=== PATIENT | female | born 1995 | race Caucasian/White ===

== ENCOUNTER 2016-07-24 13:59 | Emergency (ER) | payer OTHER ==
[2016-07-24 15:29] LABS: MEAN CORPUSCULAR HGB CONC 34.4 g/dl (32.0-36.5); MEAN CORPUSCULAR VOLUME 87.3 fl (80.0-96.0); RED CELL DISTRIBUTION WIDTH 13.9 % (11.5-14.5); WHITE BLOOD COUNT 9.2 K/mm3 (4.0-10.0)
[2016-07-24 15:37] LABS: ANION GAP 8 MEQ/L (8-16); BLOOD UREA NITROGEN 6 MG/DL (7-18); CALCIUM LEVEL 9.3 MG/DL (8.5-10.1); CARBON DIOXIDE LEVEL 27 MEQ/L (21-32); CHLORIDE LEVEL 105 MEQ/L (98-107); CREATININE FOR GFR 0.62 MG/DL (0.55-1.02); GLOMERULAR FILTRATION RATE > 60.0 (>60); GLUCOSE, FASTING 69 MG/DL (70-105); POTASSIUM SERUM 3.7 MEQ/L (3.5-5.1); SODIUM LEVEL 140 MEQ/L (136-145)
--- NOTE | 2016-07-24 16:15 | EDDOCDS ---
Nurse's Notes [facility] Name: Dilshad Hoang Age: 21 yrs Sex: Female : 1995 Arrival Date: 07/24/2016 Time: 13:59 Bed I7 / 29 Private MD: SKYLA Dai Diagnosis: 15 weeks gestation of ;Pelvic and perineal pain Presentation: 07/24 14:06 Presenting complaint: Patient states: 15 weeks 4 days . started with some RLQ dy pain a couple of days ago. having right lower pressure. denies vaginal bleeding. has placenta previa. denies pain at this time. has been lightheaded and dizzy all day. Adult Sepsis Screening: The patient does not have new or worsening altered mentation. Patient's respiratory rate is less than 22. Systolic blood pressure is greater than 100. Patient has a qSOFA score of 0- Negative Sepsis Screen. Suicide/Homicide risk assessment- the patient denies having any suicidal and/or homicidal ideations and does not present with any other emotional, behavioral or mental health complaints. Status: The patient is a dependent. Transition of care: patient was not received from another setting of care. 14:06 Acuity: RODRIGUEZ Level 3 dy 14:06 Method Of Arrival: Walkin/Carried/Asstd dy Triage Assessment: 14:09 General: Appears in no apparent distress. Pain: Denies pain. HIV screening NA for this dy visit Offered previously. 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 Vitamin 27-1 mg Oral tab 1 tab once daily - PMHx: none; - PSHx: Tonsillectomy; Laparoscopy; Colonoscopy; - Social history: Smoking status: Patient states was never smoker of tobacco. No barriers to communication noted, The patient speaks fluent [place], Speaks appropriately for age. - Family history: Not pertinent. - : The pt / caregiver states he / she is not on anticoagulants. Home medication list is obtained from the patient. - Exposure Risk Screening:: None identified. Screenin:20 Screening information is obtained from the patient. Fall risk: No risks identified. ck1 Assistance ADL's: requires no assistance with activities of daily living. Abuse/DV Screen: The patient / caregiver reports he/she is: not in a situation that causes fear, pain or injury. Nutritional screening: No deficits noted. Advance Directives: Currently, there is no health care proxy. home support is adequate. Assessment: 15:20 General: Appears in no apparent distress, comfortable, Behavior is appropriate for age, ck1 cooperative. Pain: Location: left lower quadrant Pain At worst was 6 out of 10 on a pain scale. Is episodic. Respiratory: No deficits noted. GI: Denies nausea, vomiting. : Denies burning with urination, urinary frequency, vaginal bleeding. Derm: Skin is intact, is healthy with good turgor, Skin is pink, warm & dry. 16:12 General: Appears in no apparent distress, comfortable, Behavior is appropriate for age, kc3 cooperative. Pain: Denies pain. Neurological: Level of Consciousness is awake, alert, obeys commands. Respiratory: Respiratory effort is even, unlabored. Derm: Skin is pink, warm & dry. Vital Signs: 14:02 BP 126 / 72; Pulse 108; Resp 16; Temp 98.7(O); Pulse Ox 100% ; Weight 62.51 kg (M); cmb Height 5 ft. 6 in. (167.64 cm); Pain 0/10; 16:12 BP 115 / 61; Pulse 72; Resp 18; Temp 98.8(O); Pulse Ox 100% on R/A; Pain 0/10; kc3 14:02 Body Mass Index 22.24 (62.51 kg, 167.64 cm) cmb Vitals: 14:02 Log In Time: July 24, 2016 at 13:59. cmb 15:24 Heart Tones 160BPM. ck1 ED Course: 14:01 Patient visited by Vandana Alarcon. cmb 14:01 Patient moved to Waiting cmb 14:02 SKYLA Dai is Private Physician. cmb 14:03 Patient moved to Pre RCE cmb 14:08 Triage Initiated dy 14:42 [facility] ke 14:42 Patient visited by Panchito Ellis FNP. ke 14:42 Patient visited by Panchito Ellis FNP. ke 14:42 Patient moved to I7 / 29 jrd 15:10 Patient visited by Panchito Ellis FNP. ke 15:20 The patient / caregiver is instructed regarding the plan of care and ED course. ck1 15:20 BMP Sent. ck1 15:20 CBC Sent. ck1 15:20 -Influenza A&B Rapid Antigen - Nose Sent. ck1 15:20 Inserted saline lock: 20 gauge in left antecubital area and blood collected. The ck1 patient tolerated the procedure well. 15:34 Patient visited by Panchito Ellis FNP. ke 15:40 [facility] Payment Agreement was scanned into [employer] and attached to record. gjb 15:58 Patient visited by Panchito Ellis FNP. ke 16:02 [facility] [place] Referral Physician. ke 16:13 Discontinued IV lock intact, bleeding controlled, pressure dressing applied, No kc3 redness/swelling at site. No procedures done that require assistance. Administered Medications: 15:20 Drug: NS 0.9% 1000 ml [sodium chloride 0.9 % intravenous solution] Route: IV; Rate: ck1 bolus; Site: left antecubital; Order Results: Lab Order: -Influenza A&B Rapid Antigen - Nose; SPEC'M 07/24/16 15:15 Test: INFLUENZA A RAPID SCR by ICA; Value: INFLUENZA A RESULTS NEGATIVE; Status: F Test: INFLUENZA A RAPID SCR by ICA; Value: Comments:; Status: F Test: INFLUENZA B RAPID SCR by ICA; Value: INFLUENZA B RESULTS NEGATIVE; Status: F Test Note: ; The Influenza test is a direct rapid immunoassay for the qualitative detection of Influenza viral antigen. Cell culture (Viral Culture) testing should be considered to confirm NEGATIVE results and to assist in detecting other viruses that can provide similar clinical symptoms. Please contact the lab within 24 hours ([phone]) if confirmatory testing is desired. Lab Order: CBC; SPEC'M 07/24/16 15:15 Test: WHITE BLOOD COUNT; Value: 9.2; Range: 4.0-10.0; Units: K/mm3; Status: F Test: RED BLOOD COUNT; Value: 3.90; Range: 4.00-5.40; Abnormal: Below low normal; Units: M/mm3; Status: F Test: HEMOGLOBIN; Value: 11.7; Range: 12.0-16.0; Abnormal: Below low normal; Units: g/dl; Status: F Test: HEMATOCRIT; Value: 34.0; Range: 36.0-47.0; Abnormal: Below low normal; Units: %; Status: F Test: MEAN CORPUSCULAR VOLUME; Value: 87.3; Range: 80.0-96.0; Units: fl; Status: F Test: MEAN CORPUSCULAR HEMOGLOBIN; Value: 30.0; Range: 27.0-33.0; Units: pg; Status: F Test: MEAN CORPUSCULAR HGB CONC; Value: 34.4; Range: 32.0-36.5; Units: g/dl; Status: F Test: RED CELL DISTRIBUTION WIDTH; Value: 13.9; Range: 11.5-14.5; Units: %; Status: F Test: PLATELET COUNT, AUTOMATED; Value: 240; Range: 150-450; Units: k/mm3; Status: F Lab Order: [facility] 07/24/16 15:15 Test: GLUCOSE, FASTING; Value: 69; Range: 70-105; Abnormal: Below low normal; Units: MG/DL; Status: F Test: BLOOD UREA NITROGEN; Value: 6; Range: 7-18; Abnormal: Below low normal; Units: MG/DL; Status: F Test: CREATININE FOR GFR; Value: 0.62; Range: 0.55-1.02; Units: MG/DL; Status: F Test: GLOMERULAR FILTRATION RATE; Value: > 60.0; Range: >60; Status: F Test: SODIUM LEVEL; Value: 140; Range: 136-145; Units: MEQ/L; Status: F Test: POTASSIUM SERUM; Value: 3.7; Range: 3.5-5.1; Units: MEQ/L; Status: F Test: CHLORIDE LEVEL; Value: 105; Range: 98-107; Units: MEQ/L; Status: F Test: CARBON DIOXIDE LEVEL; Value: 27; Range: 21-32; Units: MEQ/L; Status: F Test: ANION GAP; Value: 8; Range: 8-16; Units: MEQ/L; Status: F Test: CALCIUM LEVEL; Value: 9.3; Range: 8.5-10.1; Units: MG/DL; Status: F Test Note: ; Units are mL/min/1.73 m2 Chronic Kidney Disease Staging per NKF: Stage I & II GFR >=60 Normal to Mildly Decreased Stage III GFR 30-59 Moderately Decreased Stage IV GFR 15-29 Severely Decreased Stage V GFR <15 Very Little GFR Left ESRD GFR <15 on TAPPING MACHINE OPERATOR AUTOMATIC Lab Order: UA; SPEC'M 07/24/16 15:15 Test: APPEARANCE, URINE; Value: CLEAR; Range: CLEAR; Status: F Test: COLOR, URINE; Value: STRAW; Range: YELLOW; Status: F Test: PH,URINE; Value: 7.0; Range: 5.0-9.0; Units: UNITS; Status: F Test: SPECIFIC GRAVITY URINE AUTO; Value: 1.004; Range: 1.002-1.035; Status: F Test: PROTEIN, URINE AUTO; Value: NEGATIVE; Range: NEGATIVE; Units: mg/dL; Status: F Test: GLUCOSE, URINE (UA) AUTO; Value: NEGATIVE; Range: NEGATIVE; Units: mg/dL; Status: F Test: KETONE, URINE AUTO; Value: NEGATIVE; Range: NEGATIVE; Units: mg/dL; Status: F Test: UROBILINOGEN, URINE AUTO; Value: 0.2; Range: 0.0-2.0; Units: mg/dL; Status: F Test: BILIRUBIN, URINE AUTO; Value: NEGATIVE; Range: NEGATIVE; Status: F Test: NITRITE, URINE AUTO; Value: NEGATIVE; Range: NEGATIVE; Status: F Test: LEUKOCYTE ESTERASE, URINE AUTO; Value: NEGATIVE; Range: NEGATIVE; Status: F Test: BLOOD, URINE BLOOD; Value: NEGATIVE; Range: NEGATIVE; Status: F Test: WBC, URINE AUTO; Value: 0; Range: 0-3; Units: /HPF; Status: F Test: RBC, URINE AUTO; Value: 0; Range: 0-3; Units: /HPF; Status: F Test: BACTERIA, URINE AUTO; Value: 1+; Range: NEGATIVE; Abnormal: Above high normal; Status: F Test: SQUAMOUS EPITHELIAL CELL UR AU; Value: 0; Range: 0-6; Units: /HPF; Status: F Test: HYALINE CAST, URINE AUTO; Value: 0; Range: 0-1; Units: /LPF; Status: F Outcome: 16:04 Discharge ordered by Provider. 16:13 Discharge Assessment: Patient awake, alert and oriented x 3. No cognitive and/or kc3 functional deficits noted. Patient verbalized understanding of disposition instructions. patient administered narcotics - no. The following High Risk Discharge criteria are identified: None. Condition: stable. Discharge instructions given to patient, Instructed on discharge instructions, follow up and referral plans. Demonstrated understanding of instructions, Pt was receptive of discharge instructions/ teaching. No special radiology studies were completed. Property :Personal belongings accompany Pt. 16:14 Patient left the ED. kc3 Signatures: Luan Lee, RN RN dy Panchito Ellis, [place] CERTIFIED COURT INTERPRETER Bharti Griffin,RN RN ck1 Vandana Alarcon Joseph, IRA DENTAL TECHNOLOGIST Bonita HoskinsRN RN kc3 Magaly Ashley Corrections: (The following items were deleted from the chart) 14:10 14:06 Presenting complaint: Patient states: started with some RLQ pain a couple of days dy ago. having right lower pressure. denies vaginal bleeding. has placenta previa. denies pain at this time. has been lightheaded and dizzy all day. dy MTDD
--- NOTE | 2016-07-24 16:15 | EDDOCDS ---
Physician Documentation [facility] Name: Dilshad Hoang Age: 21 yrs Sex: Female : 1995 Arrival Date: 07/24/2016 Time: 13:59 Bed I7 / 29 Private MD: SKYLA Dai Disposition: 07/24/16 16:04 Discharged to Home/Self Care. Impression: 15 weeks gestation of , Pelvic and perineal pain. - Condition is Stable. - Discharge Instructions: Abdominal Pain During , Pelvic Pain, Female. - Medication Reconciliation, Local Pharmacy Hours form. - Follow up: SKYLA Dai; When: 4 - 5 days; Reason: Recheck today's complaints, Continuance of care. - Problem is an ongoing problem. - Symptoms are unchanged. Historical: - Allergies: SULFA (SULFONAMIDES)headache; - Home Meds: 1. Vitamin 27-1 mg Oral tab 1 tab once daily - PMHx: none; - PSHx: Tonsillectomy; Laparoscopy; Colonoscopy; - Social history: Smoking status: Patient states was never smoker of tobacco. No barriers to communication noted, The patient speaks fluent [place], Speaks appropriately for age. - Family history: Not pertinent. - : The pt / caregiver states he / she is not on anticoagulants. Home medication list is obtained from the patient. - Exposure Risk Screening:: None identified. 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 6 in. (167.64 cm); Pain 0/10; 16:12 BP 115 / 61; Pulse 72; Resp 18; Temp 98.8(O); Pulse Ox 100% on R/A; Pain 0/10; kc3 14:02 Body Mass Index 22.24 (62.51 kg, 167.64 cm) cmb MDM: 14:54 Heart Tones ordered. ke 14:54 Obtain sample by nasopharyngeal swab ordered. ke 14:54 IV Saline Lock ordered. ke 14:54 NS 0.9% 1000 ml IV at bolus once ordered. ke 14:54 CBC Ordered. EDMS 14:54 BMP Ordered. EDMS 14:54 -Influenza A&B Rapid Antigen - Nose Ordered. EDMS 15:33 Financial registration complete. gjb 15:40 [facility] Payment Agreement was scanned into [employer] and attached to record. gjb 15:44 CBC Reviewed. ke 15:44 BMP Reviewed. ke 15:44 -Influenza A&B Rapid Antigen - Nose Reviewed. ke 15:47 UA Ordered. EDMS 15:58 UA Reviewed. ke Administered Medications: 15:20 Drug: NS 0.9% 1000 ml [sodium chloride 0.9 % intravenous solution] Route: IV; Rate: ck1 bolus; Site: left antecubital; Signatures: Dispatcher [employer] EDHI Luan Lee RN RN Panchito Muñiz, ITINERANT TEACHER ASSISTANT ITINERANT TEACHER ASSISTANT Bharti GriffinRN RN ck1 Bonita OrtizRN RN kc3 Magaly Ashley The chart was reviewed and I authenticate all verbal orders and agree with the evaluation and treatment provided.Attachments: 15:40 [facility] Payment Agreement gj MTDD
--- NOTE | 2016-07-26 17:15 | EDDOCDS ---
Physician Documentation [facility] Name: Dilshad Hoang Age: 21 yrs Sex: Female : 1995 Arrival Date: 07/24/2016 Time: 13:59 Bed I7 / 29 Private MD: SKYLA Dai Disposition: 07/24/16 16:04 Discharged to Home/Self Care. Impression: 15 weeks gestation of , Pelvic and perineal pain. - Condition is Stable. - Discharge Instructions: Abdominal Pain During , Pelvic Pain, Female. - Medication Reconciliation, Local Pharmacy Hours form. - Follow up: SKYLA Dai; When: 4 - 5 days; Reason: Recheck today's complaints, Continuance of care. - Problem is an ongoing problem. - Symptoms are unchanged. Historical: - Allergies: SULFA (SULFONAMIDES)headache; - Home Meds: 1. Vitamin 27-1 mg Oral tab 1 tab once daily - PMHx: none; - PSHx: Tonsillectomy; Laparoscopy; Colonoscopy; - Social history: Smoking status: Patient states was never smoker of tobacco. No barriers to communication noted, The patient speaks fluent Monegasque, Speaks appropriately for age. - Family history: Not pertinent. - : The pt / caregiver states he / she is not on anticoagulants. Home medication list is obtained from the patient. - Exposure Risk Screening:: None identified. 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 6 in. (167.64 cm); Pain 0/10; 16:12 BP 115 / 61; Pulse 72; Resp 18; Temp 98.8(O); Pulse Ox 100% on R/A; Pain 0/10; kc3 14:02 Body Mass Index 22.24 (62.51 kg, 167.64 cm) cmb MDM: 14:54 Heart Tones ordered. ke 14:54 Obtain sample by nasopharyngeal swab ordered. ke 14:54 IV Saline Lock ordered. ke 14:54 NS 0.9% 1000 ml IV at bolus once ordered. ke 14:54 CBC Ordered. EDMS 14:54 BMP Ordered. EDMS 14:54 -Influenza A&B Rapid Antigen - Nose Ordered. EDMS 15:33 Financial registration complete. gjb 15:40 [facility] Payment Agreement was scanned into [employer] and attached to record. gjb 15:44 CBC Reviewed. ke 15:44 BMP Reviewed. ke 15:44 -Influenza A&B Rapid Antigen - Nose Reviewed. ke 15:47 UA Ordered. EDMS 15:58 UA Reviewed. ke 07/25 11:39 T-Sheet-- Draft Copy was scanned into [employer] and attached to record. gb Administered Medications: 07/24 15:20 Drug: NS 0.9% 1000 ml [sodium chloride 0.9 % intravenous solution] Route: IV; Rate: ck1 bolus; Site: left antecubital; Signatures: Dispatcher [employer] EDSaida Yeager, Reg Reg Luan Connell RN Panchito Stout, FRANCHISE BUSINESS CONSULTANT FRANCHISE BUSINESS CONSULTANT Bharti GriffinRN RN ck1 Bonita Ortiz RN RN martina3 Magaly Ashley The chart was reviewed and I authenticate all verbal orders and agree with the evaluation and treatment provided.Attachments: 15:40 [facility] Payment Agreement [facility] 07/25 11:39 T-Sheet-- Draft Copy gb Chart Complete MTDD
--- NOTE | 2016-07-26 17:15 | EDDOCDS ---
Nurse's Notes [facility] Name: Dilshad Hoang Age: 21 yrs Sex: Female : 1995 Arrival Date: 07/24/2016 Time: 13:59 Bed I7 / 29 Private MD: SKYLA Dai Diagnosis: 15 weeks gestation of ;Pelvic and perineal pain Presentation: 07/24 14:06 Presenting complaint: Patient states: 15 weeks 4 days . started with some RLQ dy pain a couple of days ago. having right lower pressure. denies vaginal bleeding. has placenta previa. denies pain at this time. has been lightheaded and dizzy all day. Adult Sepsis Screening: The patient does not have new or worsening altered mentation. Patient's respiratory rate is less than 22. Systolic blood pressure is greater than 100. Patient has a qSOFA score of 0- Negative Sepsis Screen. Suicide/Homicide risk assessment- the patient denies having any suicidal and/or homicidal ideations and does not present with any other emotional, behavioral or mental health complaints. Status: The patient is a dependent. Transition of care: patient was not received from another setting of care. 14:06 Acuity: RODRIGUEZ Level 3 dy 14:06 Method Of Arrival: Walkin/Carried/Asstd dy Triage Assessment: 14:09 General: Appears in no apparent distress. Pain: Denies pain. HIV screening NA for this dy visit Offered previously. MAP COMPILER: 14:09 LMP 04/06/2016, Verified, EDC 01/11/2017, Gestational age from LMP: 15 weeks 4 dy days Historical: - Allergies: SULFA (SULFONAMIDES)headache; - Home Meds: 1. Vitamin 27-1 mg Oral tab 1 tab once daily - PMHx: none; - PSHx: Tonsillectomy; Laparoscopy; Colonoscopy; - Social history: Smoking status: Patient states was never smoker of tobacco. No barriers to communication noted, The patient speaks fluent South African, Speaks appropriately for age. - Family history: Not pertinent. - : The pt / caregiver states he / she is not on anticoagulants. Home medication list is obtained from the patient. - Exposure Risk Screening:: None identified. Screenin:20 Screening information is obtained from the patient. Fall risk: No risks identified. ck1 Assistance ADL's: requires no assistance with activities of daily living. Abuse/DV Screen: The patient / caregiver reports he/she is: not in a situation that causes fear, pain or injury. Nutritional screening: No deficits noted. Advance Directives: Currently, there is no health care proxy. home support is adequate. Assessment: 15:20 General: Appears in no apparent distress, comfortable, Behavior is appropriate for age, ck1 cooperative. Pain: Location: left lower quadrant Pain At worst was 6 out of 10 on a pain scale. Is episodic. Respiratory: No deficits noted. GI: Denies nausea, vomiting. : Denies burning with urination, urinary frequency, vaginal bleeding. Derm: Skin is intact, is healthy with good turgor, Skin is pink, warm & dry. 16:12 General: Appears in no apparent distress, comfortable, Behavior is appropriate for age, kc3 cooperative. Pain: Denies pain. Neurological: Level of Consciousness is awake, alert, obeys commands. Respiratory: Respiratory effort is even, unlabored. Derm: Skin is pink, warm & dry. Vital Signs: 14:02 BP 126 / 72; Pulse 108; Resp 16; Temp 98.7(O); Pulse Ox 100% ; Weight 62.51 kg (M); cmb Height 5 ft. 6 in. (167.64 cm); Pain 0/10; 16:12 BP 115 / 61; Pulse 72; Resp 18; Temp 98.8(O); Pulse Ox 100% on R/A; Pain 0/10; kc3 14:02 Body Mass Index 22.24 (62.51 kg, 167.64 cm) cmb Vitals: 14:02 Log In Time: July 24, 2016 at 13:59. cmb 15:24 Heart Tones 160BPM. ck1 ED Course: 14:01 Patient visited by Vandana Alarcon. cmb 14:01 Patient moved to Waiting cmb 14:02 SKYLA Dai is Private Physician. cmb 14:03 Patient moved to Pre RCE cmb 14:08 Triage Initiated dy 14:42 [facility] ke 14:42 Patient visited by Panchito Ellis FNP. ke 14:42 Patient visited by Panchito Ellis FNP. ke 14:42 Patient moved to I7 / 29 jrd 15:10 Patient visited by Panchito Ellis FNP. ke 15:20 The patient / caregiver is instructed regarding the plan of care and ED course. ck1 15:20 BMP Sent. ck1 15:20 CBC Sent. ck1 15:20 -Influenza A&B Rapid Antigen - Nose Sent. ck1 15:20 Inserted saline lock: 20 gauge in left antecubital area and blood collected. The ck1 patient tolerated the procedure well. 15:34 Patient visited by Panchito Ellis FNP. ke 15:40 [facility] Payment Agreement was scanned into People[employer] and attached to record. gjb 15:58 Patient visited by Panchito Ellis FNP. ke 16:02 Suhas [facility] is Referral Physician. ke 16:13 Discontinued IV lock intact, bleeding controlled, pressure dressing applied, No kc3 redness/swelling at site. No procedures done that require assistance. 16:48 Patient name changed from Dilshad\Michelle\\S\Hoang\S\ to Dilshad\Michelle\[place]\S\Hoang. EDMS 07/25 11:39 T-Sheet-- Draft Copy was scanned into People[employer] and attached to record. gb Administered Medications: 07/24 15:20 Drug: NS 0.9% 1000 ml [sodium chloride 0.9 % intravenous solution] Route: IV; Rate: ck1 bolus; Site: left antecubital; Order Results: Lab Order: -Influenza A&B Rapid Antigen - Nose; SPEC'M 07/24/16 15:15 Test: INFLUENZA A RAPID SCR by ICA; Value: INFLUENZA A RESULTS NEGATIVE; Status: F Test: INFLUENZA A RAPID SCR by ICA; Value: Comments:; Status: F Test: INFLUENZA B RAPID SCR by ICA; Value: INFLUENZA B RESULTS NEGATIVE; Status: F Test Note: ; The Influenza test is a direct rapid immunoassay for the qualitative detection of Influenza viral antigen. Cell culture (Viral Culture) testing should be considered to confirm NEGATIVE results and to assist in detecting other viruses that can provide similar clinical symptoms. Please contact the lab within 24 hours ([phone]) if confirmatory testing is desired. Lab Order: CBC; SPEC'M 07/24/16 15:15 Test: WHITE BLOOD COUNT; Value: 9.2; Range: 4.0-10.0; Units: K/mm3; Status: F Test: RED BLOOD COUNT; Value: 3.90; Range: 4.00-5.40; Abnormal: Below low normal; Units: M/mm3; Status: F Test: HEMOGLOBIN; Value: 11.7; Range: 12.0-16.0; Abnormal: Below low normal; Units: g/dl; Status: F Test: HEMATOCRIT; Value: 34.0; Range: 36.0-47.0; Abnormal: Below low normal; Units: %; Status: F Test: MEAN CORPUSCULAR VOLUME; Value: 87.3; Range: 80.0-96.0; Units: fl; Status: F Test: MEAN CORPUSCULAR HEMOGLOBIN; Value: 30.0; Range: 27.0-33.0; Units: pg; Status: F Test: MEAN CORPUSCULAR HGB CONC; Value: 34.4; Range: 32.0-36.5; Units: g/dl; Status: F Test: RED CELL DISTRIBUTION WIDTH; Value: 13.9; Range: 11.5-14.5; Units: %; Status: F Test: PLATELET COUNT, AUTOMATED; Value: 240; Range: 150-450; Units: k/mm3; Status: F Lab Order: [facility]; SPEC'M 07/24/16 15:15 Test: GLUCOSE, FASTING; Value: 69; Range: 70-105; Abnormal: Below low normal; Units: MG/DL; Status: F Test: BLOOD UREA NITROGEN; Value: 6; Range: 7-18; Abnormal: Below low normal; Units: MG/DL; Status: F Test: CREATININE FOR GFR; Value: 0.62; Range: 0.55-1.02; Units: MG/DL; Status: F Test: GLOMERULAR FILTRATION RATE; Value: > 60.0; Range: >60; Status: F Test: SODIUM LEVEL; Value: 140; Range: 136-145; Units: MEQ/L; Status: F Test: POTASSIUM SERUM; Value: 3.7; Range: 3.5-5.1; Units: MEQ/L; Status: F Test: CHLORIDE LEVEL; Value: 105; Range: 98-107; Units: MEQ/L; Status: F Test: CARBON DIOXIDE LEVEL; Value: 27; Range: 21-32; Units: MEQ/L; Status: F Test: ANION GAP; Value: 8; Range: 8-16; Units: MEQ/L; Status: F Test: CALCIUM LEVEL; Value: 9.3; Range: 8.5-10.1; Units: MG/DL; Status: F Test Note: ; Units are mL/min/1.73 m2 Chronic Kidney Disease Staging per NKF: Stage I & II GFR >=60 Normal to Mildly Decreased Stage III GFR 30-59 Moderately Decreased Stage IV GFR 15-29 Severely Decreased Stage V GFR <15 Very Little GFR Left ESRD GFR <15 on MEDICAL RECORDS ASSISTANT Lab Order: UA; SPEC'M 07/24/16 15:15 Test: APPEARANCE, URINE; Value: CLEAR; Range: CLEAR; Status: F Test: COLOR, URINE; Value: STRAW; Range: YELLOW; Status: F Test: PH,URINE; Value: 7.0; Range: 5.0-9.0; Units: UNITS; Status: F Test: SPECIFIC GRAVITY URINE AUTO; Value: 1.004; Range: 1.002-1.035; Status: F Test: PROTEIN, URINE AUTO; Value: NEGATIVE; Range: NEGATIVE; Units: mg/dL; Status: F Test: GLUCOSE, URINE (UA) AUTO; Value: NEGATIVE; Range: NEGATIVE; Units: mg/dL; Status: F Test: KETONE, URINE AUTO; Value: NEGATIVE; Range: NEGATIVE; Units: mg/dL; Status: F Test: UROBILINOGEN, URINE AUTO; Value: 0.2; Range: 0.0-2.0; Units: mg/dL; Status: F Test: BILIRUBIN, URINE AUTO; Value: NEGATIVE; Range: NEGATIVE; Status: F Test: NITRITE, URINE AUTO; Value: NEGATIVE; Range: NEGATIVE; Status: F Test: LEUKOCYTE ESTERASE, URINE AUTO; Value: NEGATIVE; Range: NEGATIVE; Status: F Test: BLOOD, URINE BLOOD; Value: NEGATIVE; Range: NEGATIVE; Status: F Test: WBC, URINE AUTO; Value: 0; Range: 0-3; Units: /HPF; Status: F Test: RBC, URINE AUTO; Value: 0; Range: 0-3; Units: /HPF; Status: F Test: BACTERIA, URINE AUTO; Value: 1+; Range: NEGATIVE; Abnormal: Above high normal; Status: F Test: SQUAMOUS EPITHELIAL CELL UR AU; Value: 0; Range: 0-6; Units: /HPF; Status: F Test: HYALINE CAST, URINE AUTO; Value: 0; Range: 0-1; Units: /LPF; Status: F Outcome: 16:04 Discharge ordered by Provider. [email or web address] 16:13 Discharge Assessment: Patient awake, alert and oriented x 3. No cognitive and/or kc3 functional deficits noted. Patient verbalized understanding of disposition instructions. patient administered narcotics - no. The following High Risk Discharge criteria are identified: None. Condition: stable. Discharge instructions given to patient, Instructed on discharge instructions, follow up and referral plans. Demonstrated understanding of instructions, Pt was receptive of discharge instructions/ teaching. No special radiology studies were completed. Property :Personal belongings accompany Pt. 16:14 Patient left the ED. kc3 Signatures: Dispatcher [employer] EDMS Saida Amin, Luan Brunner, RN RN Panchito Muñiz, MIGRATION AGENT MIGRATION AGENT Bharti GriffinRN RN ck1 Vandana Alarcon cmJustin Lanza, IRA PATENT PARALEGAL Bonita HoskinsRN RN kc3 Magaly Ashley Corrections: (The following items were deleted from the chart) 14:10 14:06 Presenting complaint: Patient states: started with some RLQ pain a couple of days dy ago. having right lower pressure. denies vaginal bleeding. has placenta previa. denies pain at this time. has been lightheaded and dizzy all day. dy Chart Complete MTDD
--- NOTE | 2016-07-26 17:15 | EDDOCDS ---
Physician Documentation [facility] Name: Dilshad Hoang Age: 21 yrs Sex: Female : 1995 Arrival Date: 07/24/2016 Time: 13:59 Bed I7 / 29 Private MD: SKYLA Dai Disposition: 07/24/16 16:04 Discharged to Home/Self Care. Impression: 15 weeks gestation of , Pelvic and perineal pain. - Condition is Stable. - Discharge Instructions: Abdominal Pain During , Pelvic Pain, Female. - Medication Reconciliation, Local Pharmacy Hours form. - Follow up: SKYLA Dai; When: 4 - 5 days; Reason: Recheck today's complaints, Continuance of care. - Problem is an ongoing problem. - Symptoms are unchanged. Historical: - Allergies: SULFA (SULFONAMIDES)headache; - Home Meds: 1. Vitamin 27-1 mg Oral tab 1 tab once daily - PMHx: none; - PSHx: Tonsillectomy; Laparoscopy; Colonoscopy; - Social history: Smoking status: Patient states was never smoker of tobacco. No barriers to communication noted, The patient speaks fluent Iranian, Speaks appropriately for age. - Family history: Not pertinent. - : The pt / caregiver states he / she is not on anticoagulants. Home medication list is obtained from the patient. - Exposure Risk Screening:: None identified. RN CLINICAL DOCUMENTATION: 07/24 14:09 LMP 04/06/2016, Verified, EDC 01/11/2017, Gestational age from LMP: 15 weeks 4 dy days Vital Signs: 14:02 BP 126 / 72; Pulse 108; Resp 16; Temp 98.7(O); Pulse Ox 100% ; Weight 62.51 kg / 137.81 cmb lbs (M); Height 5 ft. 6 in. (167.64 cm); Pain 0/10; 16:12 BP 115 / 61; Pulse 72; Resp 18; Temp 98.8(O); Pulse Ox 100% on R/A; Pain 0/10; kc3 14:02 Body Mass Index 22.24 (62.51 kg, 167.64 cm) cmb MDM: 14:54 Heart Tones ordered. ke 14:54 Obtain sample by nasopharyngeal swab ordered. ke 14:54 IV Saline Lock ordered. ke 14:54 NS 0.9% 1000 ml IV at bolus once ordered. ke 14:54 CBC Ordered. EDMS 14:54 BMP Ordered. EDMS 14:54 -Influenza A&B Rapid Antigen - Nose Ordered. EDMS 15:33 Financial registration complete. gjb 15:40 [facility] Payment Agreement was scanned into [employer] and attached to record. gjb 15:44 CBC Reviewed. ke 15:44 BMP Reviewed. ke 15:44 -Influenza A&B Rapid Antigen - Nose Reviewed. ke 15:47 UA Ordered. EDMS 15:58 UA Reviewed. ke 07/25 11:39 T-Sheet-- Draft Copy was scanned into [employer] and attached to record. gb Administered Medications: 07/24 15:20 Drug: NS 0.9% 1000 ml [sodium chloride 0.9 % intravenous solution] Route: IV; Rate: ck1 bolus; Site: left antecubital; Signatures: Dispatcher [employer] EDSaida Yeager, Reg Reg Luan Connell RN Panchito Stout, AUTHORIZATION SPECIALIST AUTHORIZATION SPECIALIST Bharti GriffinRN RN ck1 Bonita Ortiz RN RN [email or web address] Magaly Ashley The chart was reviewed and I authenticate all verbal orders and agree with the evaluation and treatment provided.Attachments: 15:40 [facility] Payment Agreement [facility] 07/25 11:39 T-Sheet-- Draft Copy gb Chart Complete MTDD
== END 2016-07-24 16:14 | disposition home or self-care (01) ==
LOC: M ED 13:59
DX: O26.892 Other specified pregnancy related conditions, second trimester (principal); Z3A.15 15 weeks gestation of pregnancy; Z79.899 Other long term (current) drug therapy; Z88.2 Allergy status to sulfonamides

== ENCOUNTER 2016-08-28 21:04 | Outpatient (CLI) | payer OTHER ==
[~2016-08-28] VITALS: Ht 167.6 cm; Wt 64.5 kg
[2016-08-28 21:16] VITALS: BP 124/65
[2016-08-28 21:19] VITALS: BP 124/65
[2016-08-28 22:06] LABS: MEAN CORPUSCULAR HEMOGLOBIN 30.2 pg (27.0-33.0); MEAN CORPUSCULAR HGB CONC 33.5 g/dl (32.0-36.5); MEAN CORPUSCULAR VOLUME 90.3 fl (80.0-96.0); RED CELL DISTRIBUTION WIDTH 13.2 % (11.5-14.5); WHITE BLOOD COUNT 7.8 K/mm3 (4.0-10.0)
[2016-08-28 22:28] LABS: ALBUMIN 3.2 GM/DL (3.2-5.2); ALBUMIN/GLOBULIN RATIO 1.19 (1.00-1.93); ALKALINE PHOSPHATASE 43 U/L (45-117); ALT/SGPT 19 U/L (12-78); ANION GAP 6 MEQ/L (8-16); AST/SGOT 15 U/L (15-37); BILIRUBIN,TOTAL 0.3 MG/DL (0.2-1.0); BLOOD UREA NITROGEN 8 MG/DL (7-18); CALCIUM LEVEL 8.6 MG/DL (8.5-10.1); CARBON DIOXIDE LEVEL 27 MEQ/L (21-32); CHLORIDE LEVEL 108 MEQ/L (98-107); CREATININE FOR GFR 0.63 MG/DL (0.55-1.02); GLOMERULAR FILTRATION RATE > 60.0 (>60); GLUCOSE, FASTING 94 MG/DL (70-105); POTASSIUM SERUM 3.8 MEQ/L (3.5-5.1); SODIUM LEVEL 141 MEQ/L (136-145); TOTAL PROTEIN 5.9 GM/DL (6.4-8.2)
== END 2016-08-28 23:26 | disposition home or self-care (01) ==
LOC: M LDO 21:04
PROVIDERS: ATTEND Obstetrics & Gynecology
DX: O26.892 Other specified pregnancy related conditions, second trimester (principal); Z3A.20 20 weeks gestation of pregnancy; M54.5 Low back pain

== ENCOUNTER 2016-11-05 08:40 | Outpatient (CLI) | payer OTHER ==
[~2016-11-05] VITALS: Ht 167.6 cm; Wt 75.0 kg
[2016-11-05] VITALS (8 sets, daily range): BP systolic 109–121; BP diastolic 64–78
[2016-11-05] MEDS ORDERED: PROMETHAZINE INJ 25 MG/ML VIAL (J2550) IM ONE (09:00)
[2016-11-05] MEDS: LR 1,000 ML IV SCH ×2 (09:45→10:19)
[2016-11-05] MEDS ORDERED: OXYC1TAB23 PO (10:02)
[2016-11-05] MEDS ORDERED: ACET50TA PO (10:02)
[2016-11-05 10:08] LABS: BASO % 0.1 % (0.0-1.0); EOS # 0.1 K/mm3 (0.0-0.50); EOS % 1.1 % (0.0-3.0); LARGE UNSTAINED CELL # 0.2 K/mm3 (0.0-0.4); LARGE UNSTAINED CELL % 1.6 % (0.0-4.0); LYMPH # 1.2 K/mm3 (1.5-6.5); LYMPH % 9.5 % (24.0-44.0); MEAN CORPUSCULAR HEMOGLOBIN 29.4 pg (27.0-33.0); MEAN CORPUSCULAR HGB CONC 33.5 g/dl (32.0-36.5); MEAN CORPUSCULAR VOLUME 87.6 fl (80.0-96.0); MONO # 0.6 K/mm3 (0.0-0.8); MONO % 6.1 % (0.0-5.0); NEUTROPHILS # 8.4 K/mm3 (1.8-7.7); NEUTROPHILS % 81.4 % (36.0-66.0); PLATELET COUNT, AUTOMATED 206 k/mm3 (150-450); RED CELL DISTRIBUTION WIDTH 13.6 % (11.5-14.5); WHITE BLOOD COUNT 10.3 K/mm3 (4.0-10.0)
[2016-11-05 10:32] LABS: ANION GAP 10 MEQ/L (8-16); BLOOD UREA NITROGEN 10 MG/DL (7-18); CARBON DIOXIDE LEVEL 21 MEQ/L (21-32); CHLORIDE LEVEL 107 MEQ/L (98-107); CREATININE FOR GFR 0.62 MG/DL (0.55-1.02); GLOMERULAR FILTRATION RATE > 60.0 (>60); GLUCOSE, FASTING 90 MG/DL (70-105); POTASSIUM SERUM 3.6 MEQ/L (3.5-5.1); SODIUM LEVEL 138 MEQ/L (136-145)
[2016-11-05] MEDS ORDERED: ACETAMINOPHEN 500 MG TAB As Ordered ONE (13:00)
[2016-11-05] MEDS ORDERED: ACETAMINOPHEN 500 MG TAB PO ONE (13:00)
== END 2016-11-05 18:40 | disposition home or self-care (01) ==
LOC: M LDO 08:40
PROVIDERS: ATTEND Obstetrics & Gynecology
DX: O99.89 Other specified diseases and conditions complicating pregnancy, childbirth and the puerperium (principal); O21.9 Vomiting of pregnancy, unspecified; Z3A.30 30 weeks gestation of pregnancy; Z88.2 Allergy status to sulfonamides; R51 Headache

== ENCOUNTER 2016-12-30 15:09 | Outpatient (CLI) | payer OTHER ==
[~2016-12-30] VITALS: Ht 167.6 cm; Wt 82.0 kg
[~2016-12-30 15:09] MED LIST: ACET50TA PO; OXYC1TAB23 PO
[2016-12-30] MEDS ORDERED: PRE-TAB3 PO (15:22)
[2016-12-30 15:25] VITALS: BP 121/77
[2016-12-30 15:54] VITALS: BP 110/69
[2016-12-30] MEDS ORDERED: BENA25CA4 PO (16:00)
[2016-12-30] MEDS ORDERED: PROCHLORPERAZINE 10 MG/2 ML VIAL (J0780) IV ONE (16:15)
[2016-12-30] MEDS ORDERED: LR 1,000 ML IV SCH (16:15)
[2016-12-30] MEDS ORDERED: diphenhydrAMINE INJ 50MG/ML VIAL (J1200) IV ONE (16:15)
[2016-12-30 18:03] VITALS: BP 121/75
== END 2016-12-30 18:30 | disposition home or self-care (01) ==
LOC: M LDO 15:09
PROVIDERS: ATTEND Student in an Organized Health Care Education/Training Program
DX: O99.89 Other specified diseases and conditions complicating pregnancy, childbirth and the puerperium (principal); R51 Headache; Z3A.38 38 weeks gestation of pregnancy; H53.9 Unspecified visual disturbance
CPT/HCPCS: 59025; 96374; 96375; J0780; J1200

== ENCOUNTER 2017-01-07 16:32 | Outpatient (CLI) | payer OTHER ==
[~2017-01-07] VITALS: Ht 167.6 cm; Wt 84.0 kg
[~2017-01-07 16:32] MED LIST changes: +BENA25CA4 PO; +PRE-TAB3 PO
[2017-01-07 16:45] VITALS: BP 116/73
[2017-01-07 17:01] VITALS: BP 120/76
[2017-01-10] MEDS ORDERED: COLA100C3 PO (07:58)
== END 2017-01-07 17:38 | disposition home or self-care (01) ==
LOC: M LDO 16:32
PROVIDERS: ATTEND Advanced Practice Midwife
DX: O47.1 False labor at or after 37 completed weeks of gestation (principal); Z3A.39 39 weeks gestation of pregnancy; D64.9 Anemia, unspecified; Z88.2 Allergy status to sulfonamides; O99.013 Anemia complicating pregnancy, third trimester

== ENCOUNTER 2017-01-08 05:58 | Inpatient (IN) | payer OTHER ==
[2017-01-08] VITALS (47 sets, daily range): BP systolic 94–144; BP diastolic 50–92
[~2017-01-08] VITALS: Ht 167.6 cm; Wt 80.0 kg
--- NOTE | 2017-01-08 10:05 | IPNPDOC ---
Text Note Date of Service The patient was seen on 01/08/17. NOTE [id number] @ [address] Pisano @ 0730. 21 yo G1 @ 39+4 by LMP and 9+3 US on 11JUN2016; [id number]. She presented to L&D Triage @ 0558 c/o regular CTXs Q 4-7 min that were very painful. Denies LOF, VB and DFM. GBS negative. She needs Rubella and varicella drawn. S: Pt is resting on her right side in bed with spouse at bedside. States she has a low pain tolerance and is hurting very bad. She tenses up every time she has a CTX and can't relax. While talking to her she had 2 CTXs that she talked through and did not seem to notice. O: VS- WNL, afebrile FHR- BL 135, moderate variability, + accels, no decels CTX- Q 4-5 min, lasting < 90 seconds, palpated as mild, resting tone palpated as soft SVE- 2/90/-3, vtx/soft/mid, intact membranes A: 21 yo G1 @ 39+4 with regular CTX, Reactive and reassuring FHR tracing, no cervical change since last exam P: Given the option the patient would like to stay and walk for 2 hours and have a recheck. Plan to reassess in 2 hours or prn. LION CARPENTER CNM Jan 08, 2017 10:05
[2017-01-08] MEDS ORDERED: LR 1,000 ML IV SCH (11:46)
[2017-01-08] MEDS ORDERED: LACTATED RINGER'S 1000 ML IV STA (11:46)
--- NOTE | 2017-01-08 12:17 | HPEPDOC ---
Obstetrical History & Physical General Date of Admission Jan 08, 2017 at 11:44 Primary Care Physician: LION CARPENTER CNM History of Present Illness 21 yo G1 @ 39+4 by LMP([id number]) and 9+3 wk US on 11JUN2016 here for active labor, with CAT I FHR Tracing. Arrived at L&D Triage @ 0558 and monitored, with several SVEs that demonstrate continued cervical change. Denies LOF, DFM and VB. GBS negative. Chief Complaint: Contractions, term Information Provided By: Patient Age: 21 : 1 Term: 0 Pre-term: 0 Abortions: 0 Livin Care Care: Good Care Number of Visits: 12 Dating Final EDC: Jan 11, 2017 Final EDC for Daily Update: Jan 11, 2017 Final EDC by: LMP LMP: Apr 06, 2016 1st Trimester Date: Jun 11, 2016 Weeks + Days: 9.3 Estimated Date of Confinement: Jan 11, 2017 EGA at Admission: 39.4 Antepartum Course Diagnos(e)s 1. Transfer of care @ 28 wks 2. anemia- iron 3. excessive wt gain 4. 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: Abnormal Pap (needs PP colposcopy) Past Medical History Medical History DENIES Surgical History: Tonsilectomy (2012), [place] teeth (2012), Other (Laparoscopy- 2011) Family History Significant Family History: No pertinent family hx Social History Social history [facility], [facility] [address], spouse is [employer] Marital Status: Family situation: Spouse/partner home Psychosocial History: No pertinent psych hx * Smoker: non-smoker Alcohol: Denies Drugs: denies Abuse Violence Screening Have you been hit/kicked/slapp: No Have you been sexually assault: No Imunizations Tdap status: current ([id number]) Influenza Status: current () Allergies Coded Allergies: Sulfa Antibiotics (Verified Allergy, Unknown, 11/05/16) Physical Examination Physical Examination GENERAL: A&O x 3 BREAST: ABDOMEN: Gravid and non-tender to touch. FETUS: VTX by Jalen and SVE HEART RATE: RRR no m/r/g LUNGS: CTA EXTREMITIES: No edema. No clonus. DTRs +2 SVE- 6/100/-2, soft/mid/vtx EFW- 3400 gms. Vital Signs/I&O Vital Signs Date Time Temp Pulse Resp B/P (MAP) Pulse Ox O2 Delivery O2 Flow Rate FiO2 01/08/17 10:37 97.4 93 18 121/82 (95) Pertinent Laboratoy Data Blood Type: A+ RBC Antibody Screen: Negative HIV: Negative Hepatitis B: Negative Hepatitis C: Unknown Rapid Plasma Reagin: Nonreactive Rubella: Immune Varicella: Unknown Chlamydia/Gonorrhea: Negative Group B Streptococcus: Negative Quad Screen Test: Negative Glucose Tolerance Test: 117 Anatomy Ultrasound Ultrasound Date: Sep 10, 2006 Normal Anatomy: Yes Placenta Previa: No (Pt had placenta previa in , but her MD informed her it resolved in - no record of this in OB Hx. Pt is 6 cm without any bloody show. Will continue to monitor closely.) Steroid Therapy Steroid Therapy: No Vaginal Examination Dilation: 6 cm Effacement: 80+% Station: -2 Cervical Consistency: Soft Cervical Position: Middle Presentation: Cephalic presentation Position: Vertex (occiput) Assessment Heart Rate (FHR): 135 Variability: Moderate Accelerations: Positive Decelerations: None Tocometer Contractions: Yes Frequency: regular, every 3-7 min. Duration: less than 90 seconds Strength: palpated as moderate, resting tone palp/soft Multi-drug resistant Organism: No history of MDRO Assessment/Plan Assessment 21 yo G1 @ 39+4 by LMP([id number]) and 9+3 wk US on 11JUN2016 here for active labor, with CAT I FHR Tracing. Admit to L&D Plan Admit and orient. Commissioned Fire Officer and consent. Diet: clear liquid GBS negative Labs and IV per protocol + varicella LR bolus 1000 ml/hr, then 125 ml/hr Anticipate C-S as appropriate. LION CARPENTER CNM Jan 08, 2017 12:17
[2017-01-08 12:49] LABS: MEAN CORPUSCULAR HEMOGLOBIN 27.8 pg (27.0-33.0); MEAN CORPUSCULAR HGB CONC 33.6 g/dl (32.0-36.5); MEAN CORPUSCULAR VOLUME 82.7 fl (80.0-96.0); RED CELL DISTRIBUTION WIDTH 15.1 % (11.5-14.5)
[2017-01-08] MEDS ORDERED: FENTANYL 2MCG/ML ROPIVACAINE 0.2% IN 0.9% NACL 200ML IVBAG As Ordered ONE (13:00)
--- NOTE | 2017-01-08 13:28 | REP ---
Limited obstetric sonography: History: For placental location. Findings: Limited obstetric sonography demonstrates a viable single intrauterine gestation in a cephalic lie. heart rate is recorded at 144 beats per minute. An anterior placenta is seen without evidence of placenta previa. Amniotic fluid is subjectively normal. MAYTE is normal at 13.6 cm. The S/D ratio in the umbilical cord artery by Doppler is normal at 1.75. Signed by Ghassan Silva MD 01/08/2017 03:23 P
--- NOTE | 2017-01-08 13:35 | IPNPDOC ---
Text Note Date of Service The patient was seen on 01/08/17. NOTE [id number] @ 1332 21 yo G1 @ 39+4 by LMP([id number]) and 9+3 wk US on 11JUN2016 here for active labor, with CAT I FHR Tracing. Arrived at L&D Triage @ 0558 and monitored, with several SVEs that demonstrate continued cervical change. Denies LOF, DFM and VB. GBS negative. Limited obstetric US obtained(done by radiology)- placenta anterior with NO evidence of previa, cephalic lie, MAYTE-13.6 Pt is currently having and epidural placed by anesthesia VS,Fishbone, I+O VS, Fishbone, I+O Laboratory Tests 01/08/17 12:16 Red Blood Count 4.24, Mean Corpuscular Volume 82.7, Mean Corpuscular Hemoglobin 27.8, Mean Corpuscular Hemoglobin Concent 33.6, Red Cell Distribution Width 15.1 H Vital Signs Date Time Temp Pulse Resp B/P (MAP) Pulse Ox O2 Delivery O2 Flow Rate FiO2 01/08/17 10:37 97.4 93 18 121/82 (95) LION CARPENTER CNM Jan 08, 2017 13:35
--- NOTE | 2017-01-08 15:02 | ED PDOC ---
Provider Note [id number] @ 1450 21 yo G1 @ 39+4 by LMP([id number]) and 9+3 wk US on 11JUN2016 here for active labor. Denies LOF, DFM and VB. GBS negative. S: resting in bed on her left side. Reports she is comfortable with epidural infusing. Spouse is out getting snacks O- VS- WNL, afebrile (isolated mild range BP 144/92 @ 1326, occurred during epidural placement) FHR-BL-130, moderate variability, + accels, 2 late decelerations noted after epidural placement CTX- Q 4-6 min, lasting < 90 seconds, palpated as moderate, resting tone palpated as soft SVE- 7/100/-2, soft/ant/vtx, bulging membranes noted A: 21 yo G1 @ 39+4 here in active labor, continued cervical change, CAT II FHR tracing (post-epidural placement) P: continue to monitor and assess, reassess in 2 hours or prn, consider AROM at next LION CARLOS CNM Jan 08, 2017 15:02
[2017-01-08] MEDS ORDERED: EPIDURAL COMMENT XX SCH (16:30)
[2017-01-08] MEDS ORDERED: REFRIGERATOR IV KEYS XX PRN (16:30)
[2017-01-08] MEDS ORDERED: NALOXONE INJ 0.4 MG/1 ML VIAL (J2310) IV PRN (16:30)
[2017-01-08] MEDS ORDERED: EPIDURAL/PCA KEYS XX PRN (16:30)
[2017-01-08] MEDS ORDERED: ONDANSETRON 4MG/2ML VIAL (J2405) IV PRN (16:30)
[2017-01-08] MEDS ORDERED: ePHEDrine SULFATE 25 MG/5 ML(5MG/ML) SYRINGE IV PRN (16:30)
[2017-01-08] MEDS ORDERED: diphenhydrAMINE INJ 50MG/ML VIAL (J1200) IV PRN (16:30)
[2017-01-08] MEDS ORDERED: LACTATED RINGER'S 1000 ML IV PRN (16:30)
[2017-01-08] MEDS ORDERED: FENTANYL/ROPIVACAINE/NACL BAG 200 ML EPIDURAL SCH (16:30)
[2017-01-08] MEDS ORDERED: OXYTOCIN 30 UNITS IN 0.9% NaCl 500ML IV BAG (J2590) As Ordered ONE ×2 (19:28→20:25)
--- NOTE | 2017-01-08 19:34 | IPNPDOC ---
Text Note Date of Service The patient was seen on 01/08/17. NOTE [id number] @ 1929 21 yo G1 @ 39+4 by LMP([id number]) and 9+3 wk US on 11JUN2016 here for active labor. Denies LOF, DFM and VB. GBS negative. S: resting in bed on her right side. Reports she is comfortable with epidural infusing. Spouse, mother and father at bedside O- VS- WNL, afebrile (isolated mild range BP 144/92 @ 1326, occurred during epidural placement) FHR-BL-130, moderate variability, + accels, no decelerations CTX- Q 1-3 min, lasting < 90 seconds, palpated as moderate, resting tone palpated as soft SVE- 7/100/-2- done by Dr. Abreu with AROM clear fluid (I was at bedside) A: 21 yo G1 @ 39+4 here in active labor, no cervical change, CAT I FHR P: continue to monitor and assess, reassess in 2 hours or prn, consider pitocin if no change at next exam Dr. Abreu assumed care @ 1930 VS,Fishbone, I+O VS, Fishbone, I+O Laboratory Tests 01/08/17 12:16 Red Blood Count 4.24, Mean Corpuscular Volume 82.7, Mean Corpuscular Hemoglobin 27.8, Mean Corpuscular Hemoglobin Concent 33.6, Red Cell Distribution Width 15.1 H Vital Signs Date Time Temp Pulse Resp B/P (MAP) Pulse Ox O2 Delivery O2 Flow Rate FiO2 01/08/17 18:59 96 96/54 (68) 01/08/17 18:52 99.2 16 LION CARPENTER CNM Jan 08, 2017 19:34
[2017-01-08] MEDS ORDERED: OXYTOCIN DRIP 30 UNITS in APPROPRIATE DILUENT 1 EA IV SCH (22:09)
[2017-01-08] MEDS ORDERED: DIBUCAINE 1% OINTMENT 30GM TOP PRN (22:15)
[2017-01-08] MEDS ORDERED: MEASLES,MUMPS,RUBELLA VACCINE INJ (MMR-II) (90707) SC SCH (22:15)
[2017-01-08] MEDS ORDERED: MOM 30ML SUSPENSION UDC PO PRN (22:15)
[2017-01-08] MEDS ORDERED: ANUSOL HC CREAM 30GM TOP PRN (22:15)
[2017-01-08] MEDS ORDERED: RHOGAM 300 MCG (1500 IU) INJ (J2790) IM SCH (22:15)
[2017-01-08] MEDS ORDERED: OXYTOCIN INJ 10 UNITS/ML VIAL (J2590) IV ONE (22:15)
[2017-01-08] MEDS ORDERED: DOCUSATE SODIUM 100 MG CAP PO PRN (22:15)
[2017-01-08] MEDS ORDERED: METHYLERGONOVINE MALEATE 0.2 MG TAB PO PRN (22:15)
[2017-01-08 22:25] LABS: CORD GAS ABE V -4.8; CORD GAS O2 SAT V 89.7 %; CORD GAS PCO2 V 32.5 mmHg; CORD GAS PH V 7.384 UNITS; CORD GAS PO2 V 43.5 mmHg; CORD GAS SBC V 20.4 MEQ/L
[2017-01-08 22:26] LABS: CORD GAS HCO3 A 23.8 MEQ/L; CORD GAS O2 SAT A 16.6 %; CORD GAS PCO2 A 66.4 mmHg; CORD GAS PH A 7.173 UNITS; CORD GAS PO2 A 12.5 mmHg; CORD GAS SBC A 17.7 MEQ/L; CORD GAS TCO2 A 25.9 MEQ/L
[2017-01-08] MEDS: IBUPROFEN 800 MG TAB PO PRN (22:39)
[2017-01-09] VITALS: BP 124/67
[2017-01-09 00:15] VITALS: BP 129/71
[2017-01-09] MEDS ORDERED: OXYTOCIN INJ 10 UNITS/ML VIAL (J2590) As Ordered ONE (04:36)
[2017-01-09 06:35] VITALS: BP 117/60
[2017-01-09 07:09] LABS: MEAN CORPUSCULAR HEMOGLOBIN 28.3 pg (27.0-33.0); MEAN CORPUSCULAR HGB CONC 34.7 g/dl (32.0-36.5); MEAN CORPUSCULAR VOLUME 81.7 fl (80.0-96.0); WHITE BLOOD COUNT 14.5 K/mm3 (4.0-10.0)
[2017-01-09] MEDS: PRENATAL VITAMINS CHEWABLE TABLET PO SCH (09:00)
[2017-01-09] MEDS: IBUPROFEN 800 MG TAB PO PRN ×2 (10:07→20:00)
--- NOTE | 2017-01-09 11:58 | DN ---
DATE OF DELIVERY: 01/08/2017 This lady is a 21-year-old 1 admitted in spontaneous labor at 39 and 4 weeks of gestation. With epidural in place and artificial rupture of membranes (AROM) draining clear Liqui, augmented with 4 milliunits of Pitocin, she had a spontaneous vaginal delivery of live male 8 pounds 0 ounces, 3640 grams. Cord around the neck times one loose. Terminal meconium at delivery. of 9 and 9 at one and five minutes respectively. Placenta delivered spontaneously thereafter. Three-vessel cord, membranes and tissues intact. Arterial and venous pH were performed. She had a small blood vessel in the right vaginal wall which was oversewn in usual fashion. This secured hemostasis. The rest of the vagina was normal. Sphincter was intact. Anterior and posterior amanda, lateral amanda were normal. Uterus contracted well under Pitocin. The patient and baby tolerating procedure well.
--- NOTE | 2017-01-09 12:04 | IPN ---
DATE: 01/08/2017 This lady is a 1 now para 1, 21 years of age, admitted in spontaneous labor at 39 weeks of 4 days of gestation. She had a spontaneous vaginal delivery of a live male , 8 pounds 0 ounces, 3640 grams, scores of 9 and 9 at 1 and 5 minutes, respectively. Cord around the neck times one, loose. Arterial pH 7.17, base excess -6.0, venous pH 7.38, base excess -4.8. Her admitting hemoglobin was 11.8, hematocrit 35.1, platelets 216. day #1 hemoglobin 10.4, hematocrit 30.1 and platelets are 201. Her vital signs today: Blood pressure 117/60, respirations 18, pulse 88, temperature 98.7. We discussed phlebitis, cystitis, mastitis, endometritis and cellulitis, diet, exercise pain management, perineal, breast and wound care. She had a little bit of a bruise with a little bit of a blood vessel on the right vaginal wall, which was repaired because the baby came rushing down on the perineum, exploded of the right vaginal wall. She has minimal lochia and a bit of tenderness at the present time. After pains are noted, having Motrin for that. She is planning having Mirena IUCD at her 6-week checkup. In summary, we have a term gestation, delivered a live male infant. Doing well and attempting to breastfeed. Plans on discharge for tomorrow. Medications are to be given at discharge.
[2017-01-09] MEDS: ACETAMINOPHEN 500 MG TAB PO PRN ×2 (14:15→20:01)
[2017-01-09 18:50] VITALS: BP 122/64
[2017-01-09 20:18] VITALS: BP 122/64
[2017-01-10] MEDS: IBUPROFEN 800 MG TAB PO PRN (02:54)
[2017-01-10] MEDS: ACETAMINOPHEN 500 MG TAB PO PRN (02:55)
[2017-01-10 06:13] VITALS: BP 113/76
[2017-01-10] MEDS ORDERED: IBUP-1114 PO (07:57)
[2017-01-10] MEDS ORDERED: ACET50TA PO (07:57)
[2017-01-10] MEDS ORDERED: PRENTAB9 PO (07:57)
[2017-01-10] MEDS ORDERED: COLA100C5 PO (07:58)
[2017-01-10] MEDS ORDERED: NUPE1OIN2 TOP (07:59)
[2017-01-10] MEDS: PRENATAL VITAMINS CHEWABLE TABLET PO SCH (09:00)
== END 2017-01-10 11:35 | disposition home or self-care (01) | DRG 775 ==
LOC: M LDO 05:58 → M LDI 11:44 → M OBS 01-09 00:16
PROVIDERS: ADMIT Midwife; ATTEND Obstetrics & Gynecology
PROC: 10E0XZZ Delivery of Products of Conception, External Approach (ICD-10-PCS; principal; 2017-01-08)
PROC: 10907ZC Drainage of Amniotic Fluid, Therapeutic from Products of Conception, Via Natural or Artificial Opening (ICD-10-PCS; 2017-01-08)
DX: O69.82X0 Labor and delivery complicated by other cord entanglement, without compression, not applicable or unspecified (principal); Z37.0 Single live birth; Z3A.39 39 weeks gestation of pregnancy; O77.0 Labor and delivery complicated by meconium in amniotic fluid

== ENCOUNTER → 2017-03-08 | Outpatient (REF) | payer OTHER ==
[~2017-03-08] MED LIST changes: +COLA100C5 PO; +IBUP-1114 PO; +NUPE1OIN2 TOP; +PRENTAB9 PO
== END ==
LOC: M SFHCLERA 14:15
PROVIDERS: ATTEND Nurse Practitioner Family
DX: L60.0 Ingrowing nail (principal)